=== PATIENT | male | born 1940 | race Native Hawaiian/Other Pacific Islander ===

== ENCOUNTER 2018-04-27 10:03 | Day surgery (SDC) | payer OTHER | END 2018-04-27 12:15 | disposition home or self-care (01) | LOC: OR 10:03 | PROC: 08RJ3JZ Replacement of Right Lens with Synthetic Substitute, Percutaneous Approach (ICD-10-PCS; principal; 2018-04-27) | DX: H25.811 Combined forms of age-related cataract, right eye (principal) | CPT/HCPCS: 66984; J0171; V2632 ==

== ENCOUNTER 2019-12-31 17:15 | Outpatient (CLI) | payer OTHER | END 2019-12-31 19:14 | disposition home or self-care (01) | LOC: LAB 17:15 | DX: K64.0 First degree hemorrhoids (principal) | CPT/HCPCS: 82272 ==

== ENCOUNTER 2021-10-31 06:40 | Outpatient (CLI) | payer OTHER | END 2021-10-31 20:50 | disposition home or self-care (01) | LOC: LABW 06:40 | PROVIDERS: ATTEND Internal Medicine Cardiovascular Disease | DX: I10 Essential (primary) hypertension (principal) | CPT/HCPCS: 36415; 80048 ==